=== PATIENT | male | born 1960 | race Caucasian/White ===

== ENCOUNTER 2016-05-11 18:57 | Emergency (ER) | payer SELFPAY ==
[~2016-05-11 18:57] MED LIST: ATOR80TA75 PO; CARV12.579 PO; CITR473S PO; FURO40TA4 PO; GLIP-95 PO; ISON300T72 PO; ISOS60TA PO; LISI20TA11 PO; PYRI50TA14 PO; SEVE800T10 PO
== END 2016-05-11 19:23 | disposition left against medical advice (07) ==
LOC: E/R 18:57
DX: Z53.21 Procedure and treatment not carried out due to patient leaving prior to being seen by health care provider (principal)

== ENCOUNTER 2017-02-04 01:24 | Inpatient (IN) | END 2017-02-06 21:25 | disposition home or self-care (01) | DRG 377 ==